=== PATIENT | male | born 1975 | race Caucasian/White ===

== ENCOUNTER 2019-04-06 07:37 | Day surgery (SDC) | payer MEDICAID ==
[~2019-04-06 07:37] MED LIST: Lactated Ringers 1,000 ML IV SCH
[2019-04-06] MEDS ORDERED: Propofol 200 MG/20 ML SDV IV ONE (07:38)
[2019-04-06] MEDS ORDERED: Lidocaine 1% PF 2 ML SDV INJECT ONE (07:38)
--- NOTE | 2019-04-06 09:28 | PCM.OPNOTE ---
- General Post-Op/Procedure Note Date of Surgery/Procedure: 04/06/19 Operative Procedure(s): c scope Findings: internal hemorrhoids Pre Op Diagnosis: bleeding per rectum Post-Op Diagnosis: internal hemorrhoids Anesthesia Technique: MAC Primary Surgeon: Duke Titus Anesthesia Provider: Jerardo Baxter ([facility]) Pathology: none Complications: None Condition: Good Free Text/Narrative:: see dictation
--- NOTE | 2019-04-06 13:41 | OR ---
DATE OF OPERATION: 04/06/2019 SURGEON: Duke Titus MD PROCEDURE PERFORMED: Colonoscopy. PREOPERATIVE DIAGNOSIS: Hematochezia. POSTOPERATIVE DIAGNOSIS: Grade 2 internal hemorrhoids. INDICATIONS FOR PROCEDURE: This is a 44-year-old white male, who presented with a history of bright red blood per rectum. He was offered and accepted colonoscopy. DESCRIPTION OF OPERATION: After an excellent IV sedation was administered, digital rectal exam was performed. No marked abnormality was noted. Flexible colonoscope was inserted and advanced to the cecum. Prep was excellent. The following findings were noted. Ascending colon, unremarkable. Transverse colon, unremarkable. Descending colon, unremarkable. Sigmoid, unremarkable. Rectum unremarkable. Retroflexion of the scope, grade 2 hemorrhoids noted, which appeared to be the cause of his bleeding per rectum. The patient tolerated the procedure well. We will have him make arrangements to follow up for banding in the clinic. /[id number] /CARLOTAL
== END 2019-04-06 09:59 | disposition home or self-care (01) ==
LOC: FB.SDS 07:37
PROVIDERS: ATTEND Surgery
DX: K64.1 Second degree hemorrhoids (principal); K21.9 Gastro-esophageal reflux disease without esophagitis; G47.00 Insomnia, unspecified; F17.210 Nicotine dependence, cigarettes, uncomplicated; Z79.1 Long term (current) use of non-steroidal anti-inflammatories (NSAID); Z79.899 Other long term (current) drug therapy
CPT/HCPCS: 45378; J2001; J2704; J7120

== ENCOUNTER 2020-08-29 07:27 | Day surgery (SDC) | payer MEDICAID ==
[2020-08-29] MEDS ORDERED: fentaNYL 100 MCG/2 ML SDV IV ONE (07:28)
[2020-08-29] MEDS ORDERED: Ketorolac 30 MG/ML SDV IVPUSH ONE (07:28)
[2020-08-29] MEDS ORDERED: Propofol 200 MG/20 ML SDV IV ONE (07:28)
[2020-08-29] MEDS ORDERED: Ondansetron 4 MG/2 ML SDV IVPUSH ONE (07:28)
[2020-08-29] MEDS ORDERED: Midazolam 1 MG/ML 2 ML SDV IV ONE (07:28)
[2020-08-29] MEDS ORDERED: Sodium Chloride 0.9% 10 ML Syringe FLUSH PRN (07:30)
[2020-08-29] MEDS: Lactated Ringers 1,000 ML IV SCH ×2 (08:12→09:30)
[2020-08-29] MEDS ORDERED: Lidocaine 1% with EPINEPHrine 1:100,000 20 ML MDV INJECT ONE (08:58)
[2020-08-29] MEDS ORDERED: Bupivacaine 0.5% 30 ML SDV INJECT ONE (08:58)
[2020-08-29] MEDS ORDERED: ceFAZolin 2 GM in Premix Bag 1 BAG IV ONE (09:00)
--- NOTE | 2020-08-29 09:19 | PCM.OPNOTE ---
- General Post-Op/Procedure Note Date of Surgery/Procedure: 08/29/20 Operative Procedure(s): umbilical hernia repair Findings: 1 cm defect Pre Op Diagnosis: umbilical hernia without obstruction or gangrene Post-Op Diagnosis: Same Anesthesia Technique: General LMA, Local (7 ml 1 % lido with epi/0.5% buvipicaine) Primary Surgeon: Duke Titus Anesthesia Provider: Ronni Villalta Pathology: none EBL in mLs: 3 Complications: None Condition: Good Free Text/Narrative:: see [id number]
[2020-08-29] MEDS ORDERED: Acetaminophen/HYDROcodone 325-5 MG Tab PO PRN (09:22)
--- NOTE | 2020-08-29 16:09 | OR ---
DATE OF OPERATION: 08/29/2020 SURGEON: Duke Titus MD PROCEDURE PERFORMED: Umbilical hernia repair. PREOPERATIVE DIAGNOSIS: Umbilical hernia without obstruction or gangrene. POSTOPERATIVE DIAGNOSIS: Umbilical hernia without obstruction or gangrene. INDICATIONS FOR PROCEDURE: This is a 45-year-old white male, who was referred with an umbilical hernia which was partially reducible. He was offered and accepted repair. INTRAOPERATIVE FINDINGS: As follows: 1 cm defect was encountered, this was repaired primarily. A total of 7 mL of 1:1 mixture of 1% lidocaine with epinephrine and 0.5% bupivacaine was used throughout the procedure. DESCRIPTION OF OPERATION: After an excellent LMA anesthetic was administered, the patient was prepped and draped in usual sterile manner. A field block was set up using our local. A curvilinear incision was then made at the base of the patient's umbilicus with a #15 scalpel blade. A combination of blunt and sharp dissection was therefore carried out, exposing the hernia sac. The hernia sac was entered and dissected free from the underlying umbilicus and its sac was trimmed from the anterior abdominal wall defect. Bleeding from the preperitoneal fat was controlled with electrocautery. Given the size of the defect, which was roughly 1 cm in size, we elected not to use mesh, but primarily repair the defect using a [id number] repair with 0 Ethibond. An additional 0 Ethibond was placed in the middle using as a simple interrupted to help imbricate the superior aspect of the fascia down to the anterior abdominal wall. The umbilicus was then tacked to the anterior abdominal wall with a [id number] 0 Vicryl. [place] were used to close the skin. Needle, sponge, and instrument counts were reported as correct. The patient was taken to recovery room in good condition. /[id number] /MODL
== END 2020-08-29 10:45 | disposition home or self-care (01) ==
LOC: FB.SDS 07:27
PROVIDERS: ATTEND Surgery
DX: K42.9 Umbilical hernia without obstruction or gangrene (principal); F41.8 Other specified anxiety disorders; E66.9 Obesity, unspecified; G89.29 Other chronic pain; F43.10 Post-traumatic stress disorder, unspecified; Z79.899 Other long term (current) drug therapy; Z68.33 Body mass index [BMI] 33.0-33.9, adult
CPT/HCPCS: 00750; 49585; A9270; J0690; J1885; J2250; J2405; J2704; J3010; J3490; J7120

== ENCOUNTER 2025-09-04 17:14 | Emergency (ER) | payer MEDICAID ==
[2025-09-04] MEDS: Bacitracin Oint 1 GM U/D Packet TOP ONE (18:00)
== END 2025-09-04 18:10 | disposition home or self-care (01) ==
LOC: FB.ED 17:14
DX: T81.41XA Infection following a procedure, superficial incisional surgical site, initial encounter (principal); L03.114 Cellulitis of left upper limb; F17.200 Nicotine dependence, unspecified, uncomplicated; Z79.899 Other long term (current) drug therapy
CPT/HCPCS: 99283; A9270